=== PATIENT | male | born 1960 | race Caucasian/White ===

== ENCOUNTER 2020-12-12 10:42 | Day surgery (SDC) | payer OTHER ==
--- NOTE | 2020-12-12 15:29 | NUR ---
POST INFUSION CHECK. NO COMPLAINTS OR REQUESTS
== END 2020-12-12 15:49 | disposition home or self-care (01) ==
LOC: ATC 10:42
DX: U07.1 COVID-19 (principal); C43.9 Malignant melanoma of skin, unspecified
CPT/HCPCS: 96365; Q0243

== ENCOUNTER 2021-07-05 10:26 | Inpatient (IN) | payer OTHER ==
[~2021-07-05] VITALS: Ht 180.3 cm; Wt 96.7 kg
[2021-07-05] MEDS ORDERED: EUTHYROX125 MCG PO (10:53)
[2021-07-05] MEDS ORDERED: MEKTOVI15 MG PO (10:53)
[2021-07-05] MEDS ORDERED: BRAFTOVI PO (10:54)
[2021-07-05 11:01] LABS: Source, Urine Clean Catch
[2021-07-05 11:16] LABS: Bilirubin, Urine Neg (Neg); Blood, Urine Neg (Neg); Glucose Qualitative, Urine Neg (Neg); Ketones, Urine Neg (Neg); Leukocyte Esterase, Urine Neg (Neg); Nitrite, Urine Neg (Neg); Protein, Urine Neg (Neg); Specific Gravity, Urine 1.015 (1.003-1.022); Urobilinogen, Urine NORM (Normal)
[2021-07-05 11:31] LABS: BASOPHILS ABSOLUTE AUTO 0.07 K/mm3 (0.00-0.23); BASOPHILS PERCENT AUTO 1 % (0-2); EOSINOPHILS PERCENT AUTO 2 % (0-6); Hemoglobin 14.8 g/dL (13.5-17.5); IMMATURE GRAN ABSOLUTE AUTO 0.02 K/mm3 (0.00-0.10); IMMATURE GRAN PERCENT AUTO 0 % (0-1); LYMPHOCYTES ABSOLUTE AUTO 3.23 K/mm3 (0.84-5.20); LYMPHOCYTES PERCENT AUTO 36 % (21-46); MONOCYTES ABSOLUTE AUTO 0.71 K/mm3 (0.16-1.47); MONOCYTES PERCENT AUTO 8 % (4-13); Mean Corpuscular HGB 27.1 pg (26.0-34.0); Mean Corpuscular HGB Conc 32.9 g/dL (31.5-36.5); Mean Corpuscular Volume 82 fL (80-100); Mean Platelet Volume 9.9 fL (9.1-12.4); NEUTROPHILS ABSOLUTE AUTO 4.76 K/mm3 (1.96-9.15); NEUTROPHILS PERCENT AUTO 53 % (41-73); Platelet Count 229 K/mm3 (150-400); RDW Coefficient Variation 14.1 % (11.7-14.2); RDW Standard Deviation 42.1 fL (35.1-46.3); Red Blood Cell Count 5.46 M/mm3 (4.30-5.90); White Blood Cell Count 8.99 K/mm3 (4.00-11.30)
[2021-07-05 11:36] LABS: Alanine Aminotransfer (ALT/SGP 24 U/L (12-78); Albumin, Blood 3.7 g/dL (3.4-5.0); Albumin/Globulin Ratio 0.9 (0.8-1.8); Alk Phos 52 U/L (50-136); Anion Gap 6 mmol/L (6-16); Aspartate Aminotrans (AST/SGOT 18 U/L (12-37); Bilirubin, Total 0.3 mg/dL (0.1-1.0); Blood Urea Nitrogen 19 mg/dL (8-24); Bun/Creatinine Ratio 21.5 (12.0-20.0); CO2, Blood 27 mmol/L (21-32); Calcium, Blood 9.1 mg/dL (8.5-10.1); Chloride, Blood 106 mmol/L (98-108); Creatinine, Blood 0.89 mg/dL (0.60-1.20); Globulin, Blood 3.9 g/dL (2.2-4.0); Glomerular Filtration Rate >60 (60-); Glucose, Blood 111 mg/dL (70-99); Sodium, Blood 139 mmol/L (136-145); Total Protein, Blood 7.6 g/dL (6.4-8.2)
[2021-07-05 11:39] LABS: Appearance, Urine Clear (Clear); Color, Urine Pale Yellow (P-Yellow)
--- NOTE | 2021-07-05 17:10 | NUR ---
PT ARRIVED AT 1545 AO WITH NO DISTRESS AT THE TIME. PT HAD AN NG TUBE PLACEMENT ORDER WHICH ER HAD NOT BEEN ABLE TO PLACE. THIS OFFICE SUPPORT SPECIALIST MADE ONE ATTEMPT AND WAS NOT SUCCESSFUL. DR MATIAS WAS NOTIFIED AND SAID TO NOT PUT IN NG TUBE UNLESS PT STARTS TO HAVE FREQUENT EMESIS. PT AOX4 AND COOPERATIVE OF CARE. CALL LIGHT IS WITHIN REACH. WILL CONTINUE TO MONITOR.
[2021-07-06 04:13] LABS: Anion Gap 6 mmol/L (6-16); Blood Urea Nitrogen 12 mg/dL (8-24); Bun/Creatinine Ratio 14.1 (12.0-20.0); CO2, Blood 25 mmol/L (21-32); Calcium, Blood 8.1 mg/dL (8.5-10.1); Chloride, Blood 108 mmol/L (98-108); Creatinine, Blood 0.85 mg/dL (0.60-1.20); Glomerular Filtration Rate >60 (60-); Glucose, Blood 97 mg/dL (70-99); Potassium, Blood 3.6 mmol/L (3.5-5.5); Sodium, Blood 139 mmol/L (136-145)
--- NOTE | 2021-07-06 04:57 | NUR ---
SHIFT SUMMARY PT HAS RESTED MOST OF THE SHIFT. PT HAD INCREASED ABD PAIN AT THE BEGINNING OF THE SHIFT THAT MINIMIZED THE SHIFT WENT ON. PT ONLY MEDICATED ONCE FOR PAIN. HE HAS DENIED PAIN MOST OF THE NIGHT. BOWEL TONES PRESENT TO LLQ, ABD SOFT AND NON TENDER WITH PALPATION. PT REPORTS THAT HE IS STILL NOT PASSING GAS. HE HAS NOT HAD ANY NAUSEA OR VOMITTING THIS SHIFT. NO NG TUBE IN PLACE, IT WAS ATTEMPTED 3X DURING DAYSHIFT WITHOUT SUCCESS. DR. MATIAS AWARE OF THIS, AND IS OK WITH LEAVING TUBE OUT SINCE THERE HAVE BEEN NO EPISODES OF NAUSEA/VOMITTING SINCE ADMISSION. PT NPO. IVF INFUSING ORDERED. VITALS STABLE. PT INDEPENDENT IN THE ROOM. PLAN IS FOR POSSIBLE COBRA TRANSFER TO [facility]. NO ACUTE CHANGES OVERNIGHT. BED IN LOWEST POSITION, CALL LIGHT WITHIN REACH.
--- NOTE | 2021-07-06 17:05 | NUR ---
SHIFT SUMMARY PATIENT ALERT AND ORIENTED THROUGHOUT SHIFT. INDEPENDENT IN ROOM. AMBULATING IN HALLS. TOLERATING SIPS OF CLEARS. DENIES NAUSEA. ABD SOMEWHAT TENDER. NO BM THIS SHIFT. IV FLUIDS RUNNING. WAITING FOR BED AT [facility] FOR TRANSFER. VSS.
[2021-07-06 17:50] LABS: Influenza A, PCR NEGATIVE (NEGATIVE); Influenza B, PCR NEGATIVE (NEGATIVE); Resp Syncytial Virus, PCR NEGATIVE (NEGATIVE); SARS-Cov-2 (COVID-19) PCR, MMC NEGATIVE (NEGATIVE)
--- NOTE | 2021-07-07 18:25 | NUR ---
SHIFT SUMMARY ALTHOUGH HE IS NOT INTERESTED, PT HAS FORCED HIMSELF TO DRINK ON SOME CLEAR LQ's. DENIES N/V BUT JUST IS NOT INTERESTED. INT MILD PAIN; DENIED PAIN MEDS. SMALL BM TODAY & CONT's TO PASS GAS. [facility] CALLED TWICE FOR UPDATES & REPORTS HE IS STILL ON A PRIORITY LIST.
--- NOTE | 2021-07-07 20:55 | NUR ---
TRANSFER PT TRANSFERRED WITH EMS AT APPROX 2039 WITH ALL PERSONAL BELONGINGS AND AT SIDE. TRANSFER PACKET GIVEN TO BORDER MACHINE OPERATOR. REPORT CALLED TO [facility]--RN UNAVAILABLE AND OH TO CALL BACK FOR REPORT.
--- NOTE | 2021-07-07 21:38 | NUR ---
REPORT GIVEN TO LAURI LUCAS AT [facility].
== END 2021-07-07 20:40 | disposition short-term general hospital (02) | DRG 389 ==
LOC: ER 10:26 → SURS 15:24
PROVIDERS: Physician Assistant; ADMIT Internal Medicine
DX: K56.601 Complete intestinal obstruction, unspecified as to cause (principal); C78.6 Secondary malignant neoplasm of retroperitoneum and peritoneum; Z20.822 Contact with and (suspected) exposure to COVID-19; E03.9 Hypothyroidism, unspecified; Z79.899 Other long term (current) drug therapy; Z90.89 Acquired absence of other organs; Z85.820 Personal history of malignant melanoma of skin
CPT/HCPCS: 0241U; 36415; 74177; 80048; 80053; 81003; 83690; 85025; 99285-25; J1170; J2405; J3010; J7030; Q9967

== ENCOUNTER → 2022-03-24 | Outpatient (CLI) | payer OTHER ==
[~2022-03-24] MED LIST: BRAFTOVI PO; EUTHYROX125 MCG PO; MEKTOVI15 MG PO
== END ==
LOC: LAB 17:03 → LAB SHORT 17:03
DX: L08.9 Local infection of the skin and subcutaneous tissue, unspecified (principal)
CPT/HCPCS: 87070; 87077; 87205

== ENCOUNTER 2023-08-11 13:24 | Observation (INO) | payer OTHER ==
[~2023-08-11] VITALS: Ht 180.3 cm; Wt 96.2 kg
[~2023-08-11 13:24] MED LIST changes: +ATROPINE SULFATE5 M1 OP; +PRED FORTE5 M1 BOTHEYES
[2023-08-11 13:56] LABS: BASOPHILS ABSOLUTE AUTO 0.08 K/mm3 (0.00-0.23); BASOPHILS PERCENT AUTO 1 % (0-2); EOSINOPHILS PERCENT AUTO 3 % (0-6); Hematocrit 42.2 % (37.0-53.0); Hemoglobin 13.8 g/dL (13.5-17.5); IMMATURE GRAN ABSOLUTE AUTO 0.01 K/mm3 (0.00-0.10); IMMATURE GRAN PERCENT AUTO 0 % (0-1); LYMPHOCYTES ABSOLUTE AUTO 2.78 K/mm3 (0.84-5.20); LYMPHOCYTES PERCENT AUTO 37 % (21-46); MONOCYTES ABSOLUTE AUTO 0.71 K/mm3 (0.16-1.47); MONOCYTES PERCENT AUTO 10 % (4-13); Mean Corpuscular HGB 27.8 pg (26.0-34.0); Mean Corpuscular HGB Conc 32.7 g/dL (31.5-36.5); Mean Corpuscular Volume 85 fL (80-100); NEUTROPHILS ABSOLUTE AUTO 3.73 K/mm3 (1.96-9.15); NEUTROPHILS PERCENT AUTO 50 % (41-73); Platelet Count 241 K/mm3 (150-400); RDW Coefficient Variation 14.7 % (11.7-14.2); RDW Standard Deviation 45.3 fL (35.1-46.3); Red Blood Cell Count 4.97 M/mm3 (4.30-5.90); White Blood Cell Count 7.51 K/mm3 (4.00-11.30)
[2023-08-11 14:15] LABS: Albumin, Blood 3.9 g/dL (3.4-5.0); Albumin/Globulin Ratio 1.1 (0.8-1.8); Bilirubin, Total 0.4 mg/dL (0.1-1.0); Bun/Creatinine Ratio 16.5 (12.0-20.0); Calcium, Blood 9.3 mg/dL (8.5-10.1); Creatinine, Blood 1.03 mg/dL (0.60-1.20); Globulin, Blood 3.6 g/dL (2.2-4.0); Total Protein, Blood 7.5 g/dL (6.4-8.2)
[2023-08-11] MEDS ORDERED: NS 1,000 ML IV SCH ×2 (14:15→19:50)
[2023-08-11 15:07] LABS: Magnesium, Blood 2.3 mg/dL (1.6-2.4); Thyroid Stimulating Hormone 17.2 uIU/mL (0.360-4.800)
[2023-08-11] MEDS ORDERED: levETIRAcetam 1,000 MG in NS 100 ML IV ONE (16:15)
[2023-08-11] MEDS ORDERED: Aspirin 325 MG Tab PO ONE (17:25)
[2023-08-11] MEDS ORDERED: Dexamethasone Sod Phos 10 MG/ML 1ML VIAL IV ONE (17:25)
[2023-08-11 20:22] LABS: U Amphetamine Screen Not Detected; U Barbituate Screen Not Detected; U Benzodiazapine Screen Not Detected; U Buprenorphine Screen Not Detected; U Cannabinoids Screen DETECTED; U Cocaine Screen Not Detected; U Methadone Screen Not Detected; U Methamphetamine Screen Not Detected; U Opiates Screen Not Detected; U Oxycodone Screen Not Detected; U Phencyclidine Screen Not Detected
[2023-08-11] MEDS ORDERED: LevETIRAcetam 500 MG Tab PO SCH (21:00)
[2023-08-11] MEDS ORDERED: PrednisoLONE 1% Opth Susp 5 ML BOTHEYES SCH (21:00)
[2023-08-11 21:13] VITALS: BP 139/92
[2023-08-12 04:40] VITALS: BP 149/87
--- NOTE | 2023-08-12 05:46 | NUR ---
SHIFT SUMMARY PT A&OX4, VSS, AMB IND W/ SBA, TOLERATING PO, VOIDING, AND DENIED PAIN. NS INFUSING AT 100 MLS/HR. NO ACUTE CHANGES. CALL LIGHT WITHIN REACH AND PT ABLE TO MAKE NEEDS KNOWN.
[2023-08-12] MEDS ORDERED: Levothyroxine Sodium 0.15 MG Tab PO SCH (06:00)
[2023-08-12 07:41] VITALS: BP 140/94
[2023-08-12] MEDS ORDERED: LEVE500 PO (16:08)
[2023-08-12] MEDS ORDERED: PREDNISOLONE ACE5 ML BOTHEYES (16:09)
--- NOTE | 2023-08-12 16:41 | NUR ---
DISCHARGE: PT D/C @1751 INDEPENDENTLY WITH . ZIO PATCH PLACED BY [facility] PRIOR TO D/C. PT TO SEND ZIO PATCH BACK IN 2 WEEKS. EEG COMPLETED. IV IN LAC REMOVED BY COMMUNICATIONS PROJECT LEAD W/O COMPLICATIONS. TELE SENTBACK. MEDICATIONS FAXED TO [facility] IN [place]. PT AWARE TO MAKE FOLLOW-UP APPOINTMENT WITH [facility] AND PCP. MEDICAL RECORDS FAXED TO SEND CT RESULTS TO [facility]. NO QUESTIONS AT TIME OF DISCHARGE.
== END 2023-08-12 16:31 | disposition home or self-care (01) ==
LOC: ER 13:24 → MEDS 13:25
PROVIDERS: Emergency Medicine; Nurse Practitioner Acute Care; Student in an Organized Health Care Education/Training Program; ADMIT Internal Medicine
DX: R55 Syncope and collapse (principal); C79.31 Secondary malignant neoplasm of brain; E03.9 Hypothyroidism, unspecified; R79.89 Other specified abnormal findings of blood chemistry; Z79.890 Hormone replacement therapy; Z79.899 Other long term (current) drug therapy
CPT/HCPCS: 36415; 70450; 80053; 83735; 83880; 84439; 84443; 84484; 85025; 93005; 93010; 93246; 95819; 96361; 96365; 96375; 99285-25; A9270; G0378; J1100; J1953; J7030

== ENCOUNTER 2024-02-26 14:45 | Inpatient (IN) | payer BC ==
[2024-02-26] VITALS (16 sets, daily range): BP systolic 92–108; BP diastolic 38–76
[~2024-02-26] VITALS: Ht 182.9 cm; Wt 93.4 kg
[~2024-02-26 14:45] MED LIST changes: +LEVE500 PO; +PREDNISOLONE ACE5 ML BOTHEYES
[2024-02-26 15:18] LABS: Source, Urine Foley catheter
[2024-02-26 15:21] LABS: BASOPHILS ABSOLUTE AUTO 0.04 K/mm3 (0.00-0.23); BASOPHILS PERCENT AUTO 0 % (0-2); EOSINOPHILS ABSOLUTE AUTO 0.19 K/mm3 (0.00-0.68); EOSINOPHILS PERCENT AUTO 2 % (0-6); Hematocrit 46.5 % (37.0-53.0); Hemoglobin 15.2 g/dL (13.5-17.5); IMMATURE GRAN ABSOLUTE AUTO 0.04 K/mm3 (0.00-0.10); IMMATURE GRAN PERCENT AUTO 0 % (0-1); LYMPHOCYTES ABSOLUTE AUTO 2.94 K/mm3 (0.84-5.20); LYMPHOCYTES PERCENT AUTO 28 % (21-46); MONOCYTES ABSOLUTE AUTO 1.11 K/mm3 (0.16-1.47); MONOCYTES PERCENT AUTO 10 % (4-13); Mean Corpuscular HGB 28.1 pg (26.0-34.0); Mean Corpuscular HGB Conc 32.7 g/dL (31.5-36.5); Mean Corpuscular Volume 86 fL (80-100); Mean Platelet Volume 9.7 fL (9.1-12.4); NEUTROPHILS ABSOLUTE AUTO 6.34 K/mm3 (1.96-9.15); NEUTROPHILS PERCENT AUTO 59 % (41-73); Platelet Count 320 K/mm3 (150-400); RDW Coefficient Variation 12.7 % (11.7-14.2); RDW Standard Deviation 39.9 fL (35.1-46.3); White Blood Cell Count 10.66 K/mm3 (4.00-11.30)
[2024-02-26] MEDS ORDERED: Midazolam HCL 1 MG/ML 5MLVIAL IV ONE (15:25)
[2024-02-26 15:26] LABS: Bilirubin, Urine Neg (Neg); Blood, Urine 2+ (Neg); Glucose Qualitative, Urine Neg (Neg); Ketones, Urine 4+ (Neg); Leukocyte Esterase, Urine Neg (Neg); Nitrite, Urine Neg (Neg); Protein, Urine 1+ (Neg); Specific Gravity, Urine 1.025 (1.003-1.022); Urobilinogen, Urine 2+ (Normal)
[2024-02-26] MEDS ORDERED: NS 1,000 ML IV SCH ×3 (15:30→22:00)
[2024-02-26] MEDS ORDERED: dexmedeTOMIDine 100 ML IV SCH (15:35)
[2024-02-26] MEDS ORDERED: propofoL 100 ML IV SCH (15:40)
[2024-02-26] MEDS ORDERED: levETIRAcetam 1,000 MG in NS 100 ML IV ONE (15:45)
[2024-02-26 15:46] LABS: Base Excess Venous 0.4 mmol/L; PCO2 Venous 63.5 mmHg (38-42)
[2024-02-26 15:47] LABS: Ethanol (Alcohol), Blood, Med <3 mg/dL; Free Thyroxine 1.19 ng/dL (0.70-1.60); pH Blood Venous 7.25 (7.34-7.37)
[2024-02-26 15:48] LABS: Alanine Aminotransfer (ALT/SGP 17 U/L (12-78); Albumin, Blood 3.1 g/dL (3.4-5.0); Albumin/Globulin Ratio 0.7 (0.8-1.8); Alk Phos 79 U/L (50-136); Anion Gap 13 mmol/L (3-11); Aspartate Aminotrans (AST/SGOT 23 U/L (12-37); Bilirubin, Total 0.8 mg/dL (0.1-1.0); Blood Urea Nitrogen 12 mg/dL (8-24); Bun/Creatinine Ratio 14.2 (12.0-20.0); CO2, Blood 26 mmol/L (21-32); Calcium, Blood 8.9 mg/dL (8.5-10.1); Chloride, Blood 101 mmol/L (98-108); Creatinine, Blood 0.85 mg/dL (0.60-1.20); Globulin, Blood 4.7 g/dL (2.2-4.0); Glomerular Filtration Rate 98 (60-); Glucose, Blood 88 mg/dL (70-99); Potassium, Blood 2.9 mmol/L (3.5-5.5); Sodium, Blood 137 mmol/L (136-145); Total Protein, Blood 7.8 g/dL (6.4-8.2)
[2024-02-26 15:49] LABS: Acetaminophen, Random <2.0 ug/mL (10.0-30.0)
[2024-02-26 15:53] LABS: U Amphetamine Screen Not Detected; U Barbituate Screen Not Detected; U Benzodiazapine Screen Not Detected; U Buprenorphine Screen Not Detected; U Cannabinoids Screen DETECTED; U Cocaine Screen Not Detected; U Methadone Screen Not Detected; U Methamphetamine Screen Not Detected; U Opiates Screen Not Detected; U Oxycodone Screen DETECTED; U Phencyclidine Screen Not Detected
[2024-02-26 15:55] LABS: Appearance, Urine Hazy (Clear); Color, Urine Yellow (P-Yellow)
[2024-02-26 15:57] LABS: Amorphous Light (0-Heavy); Bacteria Mod /hpf; Mucus Light (0-Heavy); Red Blood Cells, Urine 0-2 /hpf (0-2); Squamous Epithelial Cells Rare /hpf (Few); White Blood Cells, Urine 0-2 /hpf (0-5)
[2024-02-26] MEDS ORDERED: Cefepime HCl 2,000 MG in NS 100 ML IV ONE (16:15)
[2024-02-26] MEDS ORDERED: Vancomycin HCL 2,000 MG in NS 500 ML IV ONE (16:25)
[2024-02-26] MEDS ORDERED: Midazolam HCl 1MG / ML 2ML Vial IV ONE (16:45)
[2024-02-26] MEDS ORDERED: Acetaminophen 650 MG Supp PR ONE (16:55)
[2024-02-26] MEDS ORDERED: Midazolam HCL 50 MG in NS 40 ML IV PRN (17:00)
[2024-02-26] MEDS ORDERED: FentaNYL Citrate 50 MCG/ML 2 ML Injection IV ONE (17:05)
[2024-02-26 17:43] LABS: Base Excess Venous 1.2 mmol/L; Bicarbonate Venous 24.3 mmol/L (24.0-30.0); PCO2 Venous 47.1 mmHg (38-42); pH Blood Venous 7.36 (7.34-7.37)
[2024-02-26] MEDS ORDERED: Potassium Chl 20MEQ/Water100ML 100 ML IV SCH ×2 (18:10→21:00)
[2024-02-26 18:27] LABS: Calcium, Ionized (POC) 0.97 mmol/L (1.10-1.46); Chloride (POC) 97 mmol/L (98-108); Creatinine (POC) 0.9 mg/dL (0.8-1.3); Glucose (ISTAT POC) 89 mg/dL (70-99); Hemoglobin (POC) 16.7 g/dL (13.5-17.5); Potassium (POC) 2.9 mmol/L (3.5-5.5); Sodium (POC) 137 mmol/L (135-148); Total CO2 (POC) 26 mmol/L (21-32)
[2024-02-26] MEDS ORDERED: Dexamethasone Sod Phos 10 MG/ML 1ML VIAL IV ONE (18:45)
[2024-02-26] MEDS ORDERED: FLU VACC TS2024-25(6MOS UP)/PF 45 MCG/0.5 ML SYRINGE IM ONE (19:30)
[2024-02-26] MEDS ORDERED: Ondansetron HCl 2 MG / ML 2ML Vial IV PRN (19:30)
[2024-02-26] MEDS ORDERED: NS 1,500 ML IV SCH (19:30)
[2024-02-26] MEDS ORDERED: Acetaminophen 325 MG TABLET PT PRN ×2 (19:35→21:05)
[2024-02-26] MEDS ORDERED: Cetylpyridinium Chloride 1 EA MISC MT SCH ×2 (20:00→21:00)
[2024-02-26] MEDS ORDERED: Pantoprazole Sodium 40 MG Injection IV SCH ×2 (20:00→21:00)
[2024-02-26 20:11] LABS: Influenza A, PCR NEGATIVE (NEGATIVE); Influenza B, PCR NEGATIVE (NEGATIVE); Resp Syncytial Virus, PCR NEGATIVE (NEGATIVE); SARS-Cov-2 (COVID-19) PCR, MMC NEGATIVE (NEGATIVE)
--- NOTE | 2024-02-26 20:25 | NUR ---
ASSUMPTION OF CARE/TRANSFER TO ICU PT TO ICU AT 2024, TRANSFERED TO ICU BED VIA SLIDER SHEET. PT INTUBATED AND SEDATED, PROPOFOL INFUSING AT 30MCG/KG/MIN, VERSED INFUSING AT 4MG/HR, INCREASED TO 6MG/HR FOR RESTLESSNESS/VENT COMPLIANCE. PT MOVES EXTREMITIES EQUALLY BILATERALLY. PT DOES NOT WITHDRAW LOWER EXTREMITIES TO NOXIOUS STIMULI. PT DOES NOT OPEN EYES WHEN PROMPTED OR FOLLOW DIRECTION. 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 PT RIGHT SCLERA RED, PUPILS SLUGGISH. HR 60-80'S SINUS, LEVOPHED INFUSING AT 11MCG/MIN TO MAINTAIN MAP >65. INTUBATED 7.5 ETT 24 AT THE TEETH. VENT SETTINGS AC/VC 16/550/5/30%, OXYGEN SATURATION >95%. PT HAS COPIOUS AMOUNTS OF THIN CLEAR ORAL SECRETIONS. ABDOMEN SOFT, BOWEL TONES HYPOACTIVE. OG TUBE IN PLACE CLAMPED PER ORDER. TEMP HINDS IN PLACE PATENT DRAINING YELLOW URINE TO GRAVITY, MINIMAL OUTPUT NOTED. PT FEBRILE ON ARRIVAL TO ICU, MEDICATED PER EMAR IN ER. PIV IN PLACE TO LAC, RAC, AND LEFT HAND SL. CENTRAL LINE IN PLACE TO RIGHT FEMORAL INFUSING. BED IN LOWEST POSITION, CALL LIGHT WITHIN REACH, MULTIPLE FAMILY MEMBERS AT THE BEDSIDE. CARE CONTINUES.
[2024-02-26] MEDS ORDERED: DEXA1 PO (21:03)
[2024-02-26] MEDS ORDERED: Folic Acid 1 MG in NS 50 ML IV SCH (21:53)
[2024-02-26] MEDS ORDERED: Thiamine HCl 100 MG in NS 50 ML IV SCH (21:54)
[2024-02-26] MEDS ORDERED: NS 250 ML IV PRN (23:10)
[2024-02-26 23:54] LABS: Base Excess Venous -7.1 mmol/L; Bicarbonate Venous 19.4 mmol/L (24.0-30.0); PCO2 Venous 30.9 mmHg (38-42); pH Blood Venous 7.38 (7.34-7.37)
[2024-02-27] VITALS (50 sets, daily range): BP systolic 87–135; BP diastolic 52–87
[2024-02-27] MEDS ORDERED: Piperacillin/Tazobactam Sod 4.5 GM in NS 100 ML IV SCH
[2024-02-27] MEDS ORDERED: Hydrogen Peroxide 1.5 % Solution MT SCH ×2
[2024-02-27 04:58] LABS: BASOPHILS ABSOLUTE AUTO 0.01 K/mm3 (0.00-0.23); BASOPHILS PERCENT AUTO 0 % (0-2); EOSINOPHILS ABSOLUTE AUTO 0.02 K/mm3 (0.00-0.68); EOSINOPHILS PERCENT AUTO 0 % (0-6); Hematocrit 38.2 % (37.0-53.0); IMMATURE GRAN ABSOLUTE AUTO 0.07 K/mm3 (0.00-0.10); IMMATURE GRAN PERCENT AUTO 1 % (0-1); LYMPHOCYTES ABSOLUTE AUTO 0.77 K/mm3 (0.84-5.20); LYMPHOCYTES PERCENT AUTO 8 % (21-46); MONOCYTES PERCENT AUTO 2 % (4-13); Mean Corpuscular HGB 28.8 pg (26.0-34.0); Mean Corpuscular Volume 85 fL (80-100); Mean Platelet Volume 9.9 fL (9.1-12.4); NEUTROPHILS ABSOLUTE AUTO 9.01 K/mm3 (1.96-9.15); NEUTROPHILS PERCENT AUTO 89 % (41-73); Platelet Count 272 K/mm3 (150-400); RDW Coefficient Variation 12.7 % (11.7-14.2); RDW Standard Deviation 39.1 fL (35.1-46.3); Red Blood Cell Count 4.52 M/mm3 (4.30-5.90); White Blood Cell Count 10.08 K/mm3 (4.00-11.30)
[2024-02-27 05:08] LABS: Albumin, Blood 2.3 g/dL (3.4-5.0); Albumin/Globulin Ratio 0.6 (0.8-1.8); Bilirubin, Total 0.5 mg/dL (0.1-1.0); Bun/Creatinine Ratio 14.6 (12.0-20.0); Calcium, Blood 8.5 mg/dL (8.5-10.1); Creatinine, Blood 0.75 mg/dL (0.60-1.20); Magnesium, Blood 1.9 mg/dL (1.6-2.4); Phosphorus, Blood 3.2 mg/dL (2.5-4.9); Potassium, Blood 3.9 mmol/L (3.5-5.5); Total Protein, Blood 6.3 g/dL (6.4-8.2)
--- NOTE | 2024-02-27 05:38 | NUR ---
SHIFT SUMMARY PT CONTINUES TO REST IN BED, INTUBATED AND SEDATED. PROPOFOL INFUSING AT 30MCG/KG/MIN. PT MOVES EXTREMITIES SPONTANEOUSLY, DOES NOT OPEN EYES OR FOLLOW DIRECTION WHEN PROMPTED. PT HAS INTACT COUGH AND GAG. HR 50-80'S SINUS, LEVOPHED INFUSING AT 4MCG/MIN TO MAINTAIN MAP >65. VENT SETTINGS AC/VC 12/550/5/30%, OXYGEN SATURATION >95%. ABDOMEN SOFT, BOWEL TONES ACTIVE THROUGHOUT. OG TUBE IN PLACE CLAMPED PER ORDER. TEMP HINDS IN PLACE PATENT DRAINING YELLOW URINE TO GRAVITY. PIV IN PLACE TO LAC, RAC, AND LEFT HAND SL. CENTRAL LINE IN PLACE TO RIGHT GROIN, CHG DRESSING IN PLACE, MINIMAL OLD BLOOD NOTED TO DRESSING, NO NEW BLEEDING NOTED, NO SIGNS OF HEMATOMA FORMATION NOTED. BED IN LOWEST POSITION, FAMILY AT THE BEDSIDE, CARE CONTINUES.
[2024-02-27] MEDS ORDERED: Levothyroxine Sodium 0.125 MG Tab PT SCH (06:00)
[2024-02-27] MEDS ORDERED: Dexamethasone Sod Phos 10 MG/ML 1ML VIAL IV SCH (09:00)
[2024-02-27] MEDS ORDERED: levETIRAcetam 750 MG in NS 100 ML IV SCH (09:00)
[2024-02-27] MEDS ORDERED: levETIRAcetam 1,000 MG in NS 100 ML IV SCH (09:00)
[2024-02-27] MEDS ORDERED: NS 1,000 ML IV SCH (11:00)
[2024-02-27] MEDS ORDERED: Atropine Sulfate 1% Opth Soln 2ML BTL SL PRN (14:10)
[2024-02-27] MEDS ORDERED: Morphine Sulfate 20 MG/1ML 1 ML Oral Syringe SL PRN (14:10)
[2024-02-27] MEDS ORDERED: LORazepam 1 MG Tab PO PRN (14:10)
[2024-02-27] MEDS ORDERED: Scopolamine Hydrobromide Patch TOP PRN (14:10)
[2024-02-27] MEDS ORDERED: LORazepam 2 MG/ML 1ML Injection IV PRN (14:15)
[2024-02-27] MEDS ORDERED: LORazepam 2 MG/ML 1ML Injection ONE (14:56)
[2024-02-27] MEDS ORDERED: LORazepam 2 MG/ML 1ML Injection IV ONE (15:00)
--- NOTE | 2024-02-27 15:00 | NUR ---
Pt is a 63 year old man who has a history of Melanoma with mets. He was treated with radiation and chemo at [facility] initially, but this ended when doctors state the treatments were no longer working, and there were no further options but hospice. However, when they attempted to admit to home hospice, they found their insurance only covers 30 days so they discharged after only 4 days, planning to start hospice again later. According to pt's Adriana, she reports the patient was ambulatory and able to perform some ADL's until yesterday, when he had what appeared to be a seizure while laying in bed. She called 911, and pt was intubated in the field, and later extubated in ICU. CT shows worsening brain lesions and new hemmorhage. He is now bedbound and non-verbal. Family would like to take him home with hospice, but also request we begin to focus on his comfort now. Orders received for comfort care, CM aware of hospice referral.
[2024-02-27] MEDS ORDERED: Haloperidol Lactate Inj. 5 MG/ML Injection IV ONE (15:20)
[2024-02-27] MEDS ORDERED: HYDROmorphone HCl/Pf 1MG SYR IV PRN (15:20)
[2024-02-27] MEDS ORDERED: Morphine Sulfate 10 MG/ML 1MLSYR IV PRN (15:20)
--- NOTE | 2024-02-27 15:22 | NUR ---
Update: Pt is exibiting signs of neuro injury, restless and attempting to climb out of bed. He is crying out, appears to be both anxious and in pain. Increased comfort orderes added, including one time dose IV Haldol now. If effective, will continue with prn haldol.
[2024-02-27] MEDS ORDERED: Haloperidol Lactate Inj. 5 MG/ML Injection IV PRN (15:25)
--- NOTE | 2024-02-27 16:43 | NUR ---
DAY SHIFT SUMMARY [id number] PT BEGAN SHIFT INTUBATED AND SEDATED ON PROPOFOL. PT TITRATED DOWN ON SEDATION AND WAS ABLE TO PASS SBT AND WAS EXTUBATED ONTO CO. PT WAS CALM BUT CONFUSED INITIAL AFTER EXTUBATION HOWEVER THE PT BECAME MORE AGITATED AND RESTLESS THE SHIFT WENT ON. PT'S FAMILY MET W PALLIATIVE CARE AND THE DECESION WAS MADE TO MAKE THE PT COMFORT CARE. PT HAVING ONE MAJOR PANIC EVENT IN WHICH HE ATTEMPTED TO EXIT THE BED PUSHING AGAINST HIS SON WHO WAS ATTEMPTING TO KEEP THE PT FROM EXITING THE BED. PT MEDICATED W ATIVAN AND ROXANOL W GOOD RELIEF. PT ON RM AIR AND APPEARING VERY COMFORTABLE NOW W HIS AT THE BEDSIDE. PT TO BE MOVED TO RM 325 W PLANS OF DISCHARGE W HOSPICE. REPORT GIVEN TO ROGELIO Benavidez RN.
--- NOTE | 2024-02-27 17:01 | NUR ---
Pt now resting comfortably, and plan for move to 325 tonight. planning to spend the night at the bedside. She states feeling very anxious and would like to get him home as soon as there is availability, no agency preference. CM aware. Informed Med Floor Charge Nurse, pt's symptoms of pain and anxiety came on swiftly today, she v/u and will pass this to vehicle painter nurses and aides. Palliative Care will continue to follow.
--- NOTE | 2024-02-27 17:17 | NUR ---
SHIFT SUMMARY/TRANSFER PT ARRIVED TO [place] [address] BY BED BY MARCO LUCAS OF ICU. FAMILY AT BEDSIDE, PT SEEMS TO BE VERY TIRED AND LETHARGIC ON COMFORT CARE. ARRIVED AT 1706. 2 RN SKIN CHECK PERFORMED BY MYSELF AND LETICIA RN. PRIOIRTY FOR REGIONAL HR MANAGER IS TO KEEP PT CALM OR ELSE "HE WILL START CLIMBING OUT OF BED". BED IN LOWEST POSITION, CALL LIGHT WITHIN REACH.
--- NOTE | 2024-02-28 03:40 | NUR ---
COMFOR CARE FOR METASTATIC MELANOMA. HX OF SEIZURES. L SIDE WEAK. CAN HAVE ROXANOL Q2 AND ATIVAN Q1. HOME IN AM ON HOSPICE. AND DAUGHTER ARE IN ROOM.
[2024-02-28 05:06] LABS: BASOPHILS ABSOLUTE AUTO 0.02 K/mm3 (0.00-0.23); BASOPHILS PERCENT AUTO 0 % (0-2); EOSINOPHILS PERCENT AUTO 0 % (0-6); Hematocrit 39.1 % (37.0-53.0); Hemoglobin 13.4 g/dL (13.5-17.5); IMMATURE GRAN ABSOLUTE AUTO 0.13 K/mm3 (0.00-0.10); IMMATURE GRAN PERCENT AUTO 1 % (0-1); LYMPHOCYTES ABSOLUTE AUTO 1.03 K/mm3 (0.84-5.20); LYMPHOCYTES PERCENT AUTO 5 % (21-46); MONOCYTES ABSOLUTE AUTO 0.55 K/mm3 (0.16-1.47); MONOCYTES PERCENT AUTO 3 % (4-13); Mean Corpuscular HGB Conc 34.3 g/dL (31.5-36.5); Mean Corpuscular Volume 85 fL (80-100); Mean Platelet Volume 9.7 fL (9.1-12.4); NEUTROPHILS ABSOLUTE AUTO 18.23 K/mm3 (1.96-9.15); NEUTROPHILS PERCENT AUTO 91 % (41-73); Platelet Count 275 K/mm3 (150-400); RDW Coefficient Variation 12.7 % (11.7-14.2); RDW Standard Deviation 39.1 fL (35.1-46.3); Red Blood Cell Count 4.62 M/mm3 (4.30-5.90); White Blood Cell Count 19.96 K/mm3 (4.00-11.30)
[2024-02-28 05:46] LABS: Albumin, Blood 2.3 g/dL (3.4-5.0); Anion Gap 10 mmol/L (3-11); Blood Urea Nitrogen 14 mg/dL (8-24); CO2, Blood 24 mmol/L (21-32); Calcium, Blood 8.4 mg/dL (8.5-10.1); Chloride, Blood 109 mmol/L (98-108); Creatinine, Blood 0.58 mg/dL (0.60-1.20); Glomerular Filtration Rate 110 (60-); Glucose, Blood 142 mg/dL (70-99); Phosphorus, Blood 2.7 mg/dL (2.5-4.9); Potassium, Blood 3.9 mmol/L (3.5-5.5); Sodium, Blood 139 mmol/L (136-145)
--- NOTE | 2024-02-28 17:12 | NUR ---
SHIFT SUMMARY PT IS A/OX2-3. NO ACUTE EVENTS THROUGHOUT THIS SHIFT. PT RESTING IN BED THROUGHOUT THIS SHIFT. PT UP TO THE BATHROOM WITH A 1 PERSON ASSIST AND GAIT BELT. FAMILY AT BEDSIDE THROUGHOUT SHIFT. PT AND FAMILY VISITED BY PALLIATIVE CARE THIS AFTERNOON. PLANS FOR DISCHARGE TO HOME TOMORROW ON HOSPICE.
[2024-02-29 04:09] LABS: KEPPRA (LEVETIRACETAM) 18 ug/mL (10-40)
--- NOTE | 2024-02-29 04:32 | NUR ---
ADMITTED 02/26/24 WITH METASTATIC MELANOMA, METS TO BRAIN. HX OF SEIZURES. AAOX 2-3 WITH A QUIET VOICE. URGE INCONTINENCE. ATIVAN Q 1 AND ROXANOL Q2. COMFORT CARE AND PLAN IS TO GO HOME ON HOSPICE. PT PULLED IV OUT IN THE MIDDLE OF NIGHT, CURRENTLY NO IV.
[2024-02-29] MEDS ORDERED: Ondansetron 4 MG SoluTab MM PRN (08:20)
[2024-02-29] MEDS ORDERED: dexAMETHasone 4 MG TAB PO SCH (09:00)
[2024-02-29] MEDS ORDERED: LevETIRAcetam 500 MG Tab PO SCH (09:00)
[2024-02-29] MEDS ORDERED: LevETIRAcetam 100 MG/ML 5ML ORAL SYR PO SCH (09:30)
[2024-02-29] MEDS ORDERED: Dexamethasone Intensol 1 MG/ML 1ML Dose PO SCH (09:30)
[2024-02-29] MEDS ORDERED: Dexamethas10 MG/1 M1 PO (11:46)
[2024-02-29] MEDS ORDERED: KEPPRA100 MG/1 M PO (11:47)
[2024-02-29] MEDS ORDERED: Ativan1 MG PO (11:47)
[2024-02-29] MEDS ORDERED: MORP20L PO (11:48)
[2024-02-29] MEDS ORDERED: ONDANSETRON ODT16 MG PO (11:49)
--- NOTE | 2024-02-29 11:59 | NUR ---
Spiritual care visit conducted. Patient is sitting on the EOB and alert. He tells me that he will D/C home shortly. He struggles to talk but welcomes prayer, which I gladly provide. Patient and family voice their gratitude for the prayer and showed signs of being comforted.
--- NOTE | 2024-02-29 12:15 | NUR ---
PT DISCHARGE TO HOME WITH FAMILY ON HOSPICE. DISCHARGE INSTRUCTIONS PROVIDED AND EDUCATED ON PRIOR TO DISCHARGE. ALL VALUABLES RETURNED AND SENT WITH PATIENT.
== END 2024-02-29 12:12 | disposition hospice, home (50) | DRG 100 ==
LOC: ER 14:45 → ICUE 19:26 → MEDS 19:26 → ICUE 20:25 → MEDS 02-27 17:15
PROVIDERS: Internal Medicine Critical Care Medicine; Student in an Organized Health Care Education/Training Program; ADMIT Internal Medicine
PROC: 0BH17EZ Insertion of Endotracheal Airway into Trachea, Via Natural or Artificial Opening (ICD-10-PCS; principal; 2024-02-26)
PROC: 5A1935Z Respiratory Ventilation, Less than 24 Consecutive Hours (ICD-10-PCS; 2024-02-26)
PROC: 3E033XZ Introduction of Vasopressor into Peripheral Vein, Percutaneous Approach (ICD-10-PCS; 2024-02-26)
PROC: 06HY33Z Insertion of Infusion Device into Lower Vein, Percutaneous Approach (ICD-10-PCS; 2024-02-26)
PROC: B54BZZA Ultrasonography of Right Lower Extremity Veins, Guidance (ICD-10-PCS; 2024-02-26)
DX: G40.901 Epilepsy, unspecified, not intractable, with status epilepticus (principal); A41.9 Sepsis, unspecified organism; J96.01 Acute respiratory failure with hypoxia; Z66 Do not resuscitate; Z51.5 Encounter for palliative care; J18.9 Pneumonia, unspecified organism; G92.8 Other toxic encephalopathy; J69.0 Pneumonitis due to inhalation of food and vomit; G93.6 Cerebral edema; C79.31 Secondary malignant neoplasm of brain; J98.11 Atelectasis; C78.02 Secondary malignant neoplasm of left lung; C43.9 Malignant melanoma of skin, unspecified; E03.9 Hypothyroidism, unspecified; E87.6 Hypokalemia; Z79.899 Other long term (current) drug therapy; Z79.890 Hormone replacement therapy; Z98.52 Vasectomy status; Z98.890 Other specified postprocedural states; Z87.891 Personal history of nicotine dependence
CPT/HCPCS: 0241U; 36415; 36556; 51702; 70450; 71045; 80047; 80053; 80069; 80177; 80320; 81001; 82803; 82947; 83605; 83735; 84100; 84439; 84443; 85014; 85025; 87040; 87070; 87086; 87205; 93005; 93010; 94002; 94003; 96365; 96366; 96367; 96368; 96375; 99291-25; 99292; A9270; C1751; G0480; J0692; J1100; J1630; J1953; J2060; J2250; J2470; J2543; J2704; J3010; J3370; J3411; J3480; J7030; J7040; J7050; J7060; J8540